=== PATIENT | male | born 1955 | race Caucasian/White ===

== ENCOUNTER 2018-01-23 01:00 | Emergency (ER) | payer MEDICARE, MEDICAID ==
[~2018-01-23] VITALS: Ht 167.6 cm; Wt 115.0 kg
[2018-01-23 01:11] VITALS: BP 143/90; PULSE 99; RESP 20; TEMP 97.9; O2SAT 96
[2018-01-23] MEDS: PROPARACAINE HCL 0.5% OPHT SOLN 15 ML BTL EACH EYE ONE (02:10)
[2018-01-23] MEDS ORDERED: OCUF0.3D EACH EYE (02:13)
[2018-01-23] MEDS ORDERED: TRAM50TA PO (02:14)
--- NOTE | 2018-01-23 02:14 | PD ---
HPI Chief Complaint: Eye Problems/Injury Time Seen by Provider: 01:51 Travel History International Travel<30 days: No Contact w/Intl Traveler<30days: No Traveled to known affect area: No History of Present Illness HPI The patient 62 years old and complains of foreign body in the eye redness in the eye and generalized discomfort of the eye. It is the left eye. Duration 16 -18 hours. The patient states he woke up with the symptoms. No similar prior symptoms. No double vision. No headache. Timing constant. PFSH Past Medical History Bipolar Disorder: Yes Anxiety: Yes Depression: Yes Diminished Hearing: No Neurologic: Yes (TBI) Tetanus Vaccination: Unknown Influenza Vaccination: No Past Surgical History Neurologic Surgery: Yes (brain surgery with skull removal) Social History Alcohol Use: Yes (seldom) Tobacco Use: Yes Substance Use: No Allergies-Medications (Allergen,Severity, Reaction): Coded Allergies: No Known Allergies (Unverified , 01/23/18) Reported Meds & Prescriptions Reported Meds & Active Scripts Active Tramadol (Tramadol HCl) 50 Mg Tab 100 Mg PO Q6H PRN Ocuflox Opth Drops (Ofloxacin Opth Drops) 0.3 % Drops 1 Drop EACH EYE Q6HR 7 Days Review of Systems General / Constitutional: No: Fever Eyes: Positive: Blurred Vision, Photophobia, Drainage, Pain, Tearing, No: Diploplia Physical Exam Narrative GENERAL: 62-year-old male well-nourished well-developed pleasant mild distress secondary to pain SKIN: Warm and dry. HEAD: Normocephalic. EYES: Forcing stain reveals a minute approximately 2 mm somewhat round corneal abrasion along the iris margin at approximately 4:00. No visualized foreign body. NECK: Supple, trachea midline. No JVD or lymphadenopathy. CARDIOVASCULAR: Tachycardia. Regular rhythm. Data Data Last Documented VS Orders Orders Proparacaine 0.5% Opth Soln (Alcaine 0.5 (01/23/18 02:00) Ed Discharge Order (01/23/18 02:14) Tetanus/Diphtheria Tox Adult (Tetanus/Di (01/23/18 02:15) Ofloxacin 0.3% Opth Soln (Ocuflox 0.3% O (01/23/18 02:30) MDM Medical Decision Making Medical Screen Exam Complete: Yes Emergency Medical Condition: Yes Medical Record Reviewed: Yes Differential Diagnosis Corneal abrasion, open globe, foreign body, rust ring, conjunctivitis, traumatic arthritis Narrative Course Floor seen stain reveals a minute corneal abrasion. Scripts as below. Diagnosis Primary Impression: Corneal abrasion, left Qualified Codes: S05.02XA - Injury of conjunctiva and corneal abrasion without foreign body, left eye, initial encounter Referrals: Yumiko Huang MD as needed Med/Other Pt SpecificInfo: Prescription(s) given Scripts Tramadol (Tramadol) 50 Mg Tab 100 MG PO Q6H Y for PAIN, #20 TAB 0 Refills Prov: Enoch Rebolledo MD 01/23/18 Ofloxacin Opth Drops (Ocuflox Opth Drops) 0.3 % Drops 1 DROP EACH EYE Q6HR for Infection for 7 Days, #1 BOTTLE 0 Refills Prov: Enoch Rebolledo MD 01/23/18 Disposition: 01 DISCHARGE HOME Condition: Stable Enoch Rebolledo MD January 23, 2018 02:14
[2018-01-23] MEDS: TETANUS/DIPHTHERIA TOXOID ADULT 0.5 ML VIAL IM ONE (03:02)
[2018-01-23] MEDS: OFLOXACIN 0.3% OPTH SOLN 5 ML BTL EACH EYE ONE (03:02)
== END 2018-01-23 03:07 | disposition home or self-care (01) ==
LOC: NEPE 01:00 → EDBD 01:00 → NEPE 03:07
DX: S05.02XA Injury of conjunctiva and corneal abrasion without foreign body, left eye, initial encounter (principal); F31.9 Bipolar disorder, unspecified; Z72.0 Tobacco use; Z23 Encounter for immunization
CPT/HCPCS: 90471; 90714